=== PATIENT | female | born 1985 | race Caucasian/White ===

== ENCOUNTER 2019-07-11 17:13 | Emergency (ER) | payer OTHER ==
[~2019-07-11] VITALS: Ht 170.2 cm; Wt 70.0 kg
[2019-07-11 17:20] VITALS: BP 127/85
== END 2019-07-11 20:02 | disposition home or self-care (01) ==
LOC: ER 17:14
DX: B34.9 Viral infection, unspecified (principal); R21 Rash and other nonspecific skin eruption; F10.99 Alcohol use, unspecified with unspecified alcohol-induced disorder; F17.200 Nicotine dependence, unspecified, uncomplicated; Y90.9 Presence of alcohol in blood, level not specified
CPT/HCPCS: 99281

== ENCOUNTER 2019-07-12 10:31 | Emergency (ER) | payer MEDICAID ==
[~2019-07-12] VITALS: Ht 170.2 cm; Wt 75.7 kg
[2019-07-12 10:32] VITALS: BP 117/84
== END 2019-07-12 12:51 | disposition home or self-care (01) ==
LOC: ER 10:31
DX: B09 Unspecified viral infection characterized by skin and mucous membrane lesions (principal); F10.99 Alcohol use, unspecified with unspecified alcohol-induced disorder; Y90.9 Presence of alcohol in blood, level not specified
CPT/HCPCS: 99281

== ENCOUNTER 2020-05-02 20:03 | Emergency (ER) | payer OTHER ==
[~2020-05-02] VITALS: Ht 170.2 cm; Wt 76.2 kg
[2020-05-02] MEDS ORDERED: TETanus/Pertussis (Acell)/Diphther VAC/PF (Tdap-Adult) 0.5ml syringe IMVAC ONE (20:15)
--- NOTE | 2020-05-02 20:23 | NUR ---
pt admits she did meth tonight. "its not normally my thing but I did use it tonight."
[2020-05-02 20:47] LABS: CLARITY,URINE CLEAR (Clear); COLOR,URINE STRAW (Yellow); GLUCOSE, URINE NEGATIVE (Neg); KETONES,URINE NEGATIVE (Neg); LEUKOCYTE ESTERASE ,URINE NEGATIVE (Neg); NITRITES, URINE NEGATIVE (Neg); OCCULT BLOOD,URINE NEGATIVE (Neg); PH,URINE 6.5 (4.8-8.0); PROTEIN,URINE NEGATIVE (Neg); URINE HCG NEGATIVE (NEG); UROBILINOGEN,URINE 0.2 E.U/dL (0.2-1.0)
[2020-05-02 20:47] LABS: BASOPHILS # (AUTO) 0.1 X10'3 (0-0.2); BASOPHILS % (AUTO) 0.5 % (0-1); EOSINOPHILS # (AUTO) 0.1 X10'3 (0-0.9); EOSINOPHILS % (AUTO) 0.4 % (0-6); HEMATOCRIT 45.1 % (35.0-45.0); HEMOGLOBIN 15.1 g/dl (12.0-16.0); LYMPHOCYTES % (AUTO) 21.2 % (21-51); MEAN CORPUSCULAR HEMOGLOBIN 30.8 PG (27.0-31.0); MEAN CORPUSCULAR HGB CONC 33.5 g/dL (33.0-36.5); MEAN CORPUSCULAR VOLUME 91.8 FL (78-98); MEAN PLATELET VOLUME 9.1 FL (7.4-10.4); MONOCYTES # (AUTO) 0.8 X10'3 (0-0.9); MONOCYTES % (AUTO) 5.5 % (2-12); NEUTROPHILS # (AUTO) 10.2 X10'3 (1.8-7.7); NEUTROPHILS % (AUTO) 72.4 % (42-75); PLATELET COUNT 239 X10'3 (140-440); RED BLOOD COUNT 4.91 X10'6 (4.20-5.60); RED CELL DISTRIBUTION WIDTH 12.7 % (11.5-14.5); WHITE BLOOD COUNT 14.1 X10'3 (4.5-11.0)
[2020-05-02 20:48] LABS: UA COLLECTION TYPE CLN CATCH MIDSTREAM
[2020-05-02 20:55] LABS: URINE AMPHETAMINE SCREEN NEGATIVE (Neg); URINE BARBITUATE SCREEN NEGATIVE (Neg); URINE BENZODIAZEPINES SCREEN NEGATIVE (Neg); URINE CANNABINOID SCREEN NEGATIVE (Neg); URINE COCAINE SCREEN NEGATIVE (Neg); URINE METHADONE SCREEN NEGATIVE (Neg); URINE OPIATE SCREEN NEGATIVE (Neg); URINE PHENCYCLIDINE SCREEN NEGATIVE (Neg)
[2020-05-02] MEDS ORDERED: LORazepam 1 MG tablet PO ONE (21:00)
[2020-05-02 21:01] LABS: ALANINE AMINOTRANSFERASE 29 U/L (12-78); ALBUMIN 3.8 G/DL (3.4-5.0); ALBUMIN/GLOBULIN RATIO 1.1 (1.1-1.5); ALKALINE PHOSPHATASE 43 IU/L (46-116); ANION GAP 11 (8-16); ASPARTATE AMINO TRANSFERASE 17 U/L (10-37); BILIRUBIN,TOTAL 0.2 MG/DL (0.1-1.0); BLOOD UREA NITROGEN 9 MG/DL (7-18); BUN/CREATININE RATIO 15.5 (6.6-38.0); CALCIUM 8.4 MG/DL (8.5-10.1); CHLORIDE 106 MMOL/L (99-107); CREATININE 0.58 MG/DL (0.40-0.90); GLUCOSE 110 MG/DL (70-104); POTASSIUM 3.6 MMOL/L (3.5-5.1); SODIUM 142 MMOL/L (135-145); TOTAL CARBON DIOXIDE 25.4 MMOL/L (24-32); TOTAL PROTEIN 7.3 G/DL (6.4-8.2); eGFR > 90 ML/MIN
[2020-05-02] MEDS ORDERED: LORazepam 2 mg/ml vial IM ONE ×2 (21:10→21:15)
[2020-05-02] MEDS ORDERED: haloperidol lactate 5mg/ml inj IM ONE ×2 (21:10→21:15)
[2020-05-02] MEDS ORDERED: diphenhydrAMINE 50 mg/ml inj IM ONE ×2 (21:10→21:15)
[2020-05-02 21:11] LABS: ETHANOL 0.286 GM/DL (0.0-0.010)
--- NOTE | 2020-05-02 22:30 | NUR ---
Pt appears to be sleeping peacefully. No s/s of distress noted. Restraints released
--- NOTE | 2020-05-02 23:15 | NUR ---
Pt still lying on gurney resting comfortably. No s/s of distress noted
--- NOTE | 2020-05-03 | NUR ---
Pt continues to appear to be resting comfortably on the gurney. No apparent s/s of distress
--- NOTE | 2020-05-03 01:00 | NUR ---
Patient has repositioned herself on the gurney. Appears to be resting comfortably. No apparent s/s of distress noted
--- NOTE | 2020-05-03 02:00 | NUR ---
Pt appears to be resting comfortably. No s/s of distress noted
--- NOTE | 2020-05-03 02:39 | NUR ---
packet sent to [facility]
--- NOTE | 2020-05-03 03:30 | NUR ---
Pt appears to be resting comfortably. No apparent s/s of distress
--- NOTE | 2020-05-03 04:30 | NUR ---
Pt appears to be resting comfortably. No apparent s/s of distress
--- NOTE | 2020-05-03 06:29 | NUR ---
RECEIVED RRPORT FROM ANGÉLICA ROE. PT RESTING WITH EYES CLOSED ON LEFT SIDE RR EQUAL AND UNLABORED.
--- NOTE | 2020-05-03 08:01 | NUR ---
UP TO BR. STEADY GAIT NO NEEDS AT THIS TIME
--- NOTE | 2020-05-03 09:29 | NUR ---
PT RESTING ON RIGHT SIDE RR EQUAL AND ULABORED
--- NOTE | 2020-05-03 09:40 | NUR ---
SITTING UP IN BED EATING BREAKFAST
--- NOTE | 2020-05-03 11:38 | NUR ---
NILSA FROM [facility] AT TO EVALUATE PT
--- NOTE | 2020-05-03 11:59 | NUR ---
JEIMY WHATLEY [phone]
--- NOTE | 2020-05-03 12:00 | NUR ---
PT TALKING TO ON THE PHONE
--- NOTE | 2020-05-03 12:17 | NUR ---
PT RESTING ON RIGHT SIDE RR EQUAL AND UNLABORED. EYES CLOSED
--- NOTE | 2020-05-03 14:20 | NUR ---
PT RESTING ON RIGHT SIDE RR EQUAL AND UNLABORED
--- NOTE | 2020-05-03 16:18 | NUR ---
PT RESTING WITH EYES CLOSED ON RIGHT SIDE RR EQUAL AND UNLABORED.
--- NOTE | 2020-05-03 19:06 | NUR ---
Pt currently lying on her side. No apparent s/s of distress noted
--- NOTE | 2020-05-03 20:05 | NUR ---
Pt remains sleeping in her bed. No apparent s/s of distress noted
--- NOTE | 2020-05-03 21:15 | NUR ---
Pt appears to be resting comfortably. No apparent s/s of distress
--- NOTE | 2020-05-03 22:10 | NUR ---
Pt appears to be resting comfortably. No apparent s/s of distress
--- NOTE | 2020-05-03 23:05 | NUR ---
Pt appears to be resting comfortably. No apparent s/s of distress
--- NOTE | 2020-05-04 | NUR ---
Received report and assumed pt care. Pt resting quietly, respirations normal, s/s of distress.
--- NOTE | 2020-05-04 01:00 | NUR ---
Pt resting quietly, respirations normal, s/s of distress.
--- NOTE | 2020-05-04 01:00 | NUR ---
Pt resting quietly, respirations normal, s/s of distress.
--- NOTE | 2020-05-04 02:40 | NUR ---
Pt resting quietly, respirations normal, s/s of distress.
--- NOTE | 2020-05-04 03:30 | NUR ---
Pt resting quietly, respirations normal, s/s of distress.
--- NOTE | 2020-05-04 04:29 | NUR ---
Pt resting quietly, respirations normal, s/s of distress.
[2020-05-04 05:28] VITALS: BP 111/59
[2020-05-04] MEDS ORDERED: nicotine 14mg patch - 24hr TD ONE (08:50)
[2020-05-04] MEDS ORDERED: ESCI10TA PO (13:39)
== END 2020-05-04 10:03 ==
LOC: ER 20:04
DX: S80.212A Abrasion, left knee, initial encounter (principal); S80.211A Abrasion, right knee, initial encounter; T14.91XA Suicide attempt, initial encounter; F10.129 Alcohol abuse with intoxication, unspecified; Z72.89 Other problems related to lifestyle; X58.XXXA Exposure to other specified factors, initial encounter; Y93.89 Activity, other specified; Y92.89 Other specified places as the place of occurrence of the external cause; Y99.8 Other external cause status; Y90.0 Blood alcohol level of less than 20 mg/100 ml
CPT/HCPCS: 36415; 80053; 80305; 80320; 81003; 81025; 84443; 85025; 96372; 99285; J1200; J1630; J2060

== ENCOUNTER 2020-05-04 08:50 | Inpatient (IN) | payer OTHER, MEDICAID ==
[~2020-05-04] VITALS: Ht 167.6 cm; Wt 75.6 kg
[2020-05-04] MEDS ORDERED: mag hydrox/Alum hydrox/simeth 30ml oral suspension PO PRN (10:20)
[2020-05-04] MEDS ORDERED: acetaminophen 325mg tablet PO PRN (10:20)
[2020-05-04] MEDS: LORazepam 1 MG tablet PO PRN (10:36)
[2020-05-04 10:37] VITALS: BP 116/75
[2020-05-04 12:11] LABS: CLARITY,URINE SLIGHTLY CLOUDY (Clear); COLOR,URINE STRAW (Yellow); GLUCOSE, URINE NEGATIVE (Neg); KETONES,URINE NEGATIVE (Neg); LEUKOCYTE ESTERASE ,URINE SMALL (Neg); NITRITES, URINE NEGATIVE (Neg); OCCULT BLOOD,URINE TRACE-INTACT (Neg); PH,URINE 7.5 (4.8-8.0); PROTEIN,URINE NEGATIVE (Neg); UROBILINOGEN,URINE 0.2 E.U/dL (0.2-1.0)
[2020-05-04 12:14] LABS: UA COLLECTION TYPE CLN CATCH MIDSTREAM
[2020-05-04 12:22] LABS: SQUAMOUS EPITHELIAL CELL,UR MODERATE /LPF (FEW)
[2020-05-04 12:24] LABS: BACTERIA,URINE 1+ /HPF (Neg); RBC,URINE 0-2 /HPF (0-2)
[2020-05-04] MEDS ORDERED: ESCI10TA PO (13:39)
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
[2020-05-04] MEDS ORDERED: ESCITALOPRAM OXALATE 5 MG TABLET PO ONE (15:55)
[2020-05-04] MEDS: hydrOXYzine 25 MG tablet PO PRN (16:09)
--- NOTE | 2020-05-04 17:53 | NUR ---
Reviewed UA results with CATERINA Toribio. No orders at this time.
[2020-05-04 20:00] VITALS: BP 114/78
[2020-05-04] MEDS: NICOTINE POLACRILEX 2 MG LOZENGE BC PRN (20:51)
[2020-05-04] MEDS: traZODone 50mg tablet PO SCH (20:52)
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
[2020-05-05 07:45] VITALS: BP 98/57
[2020-05-05] MEDS: nicotine 21mg patch - 24 hr TD SCH (07:48)
[2020-05-05 07:50] LABS: HEMOGLOBIN A1C 5.2 % (4.5-6.2)
[2020-05-05] MEDS: acetaminophen 325mg tablet PO PRN (07:50)
[2020-05-05 07:53] LABS: CHOL/HDL RATIO 3.6 (0.00-4.99); CHOLESTEROL 197 MG/DL (0-200); HDL CHOLESTEROL 55 MG/DL (35-60); LDL CHOLESTEROL 119 MG/DL (50-100); TRIGLYCERIDES 163 MG/DL (20-135)
[2020-05-05] MEDS ORDERED: ESCITALOPRAM OXALATE 5 MG TABLET PO SCH (08:00)
[2020-05-05] MEDS: LORazepam 1 MG tablet PO PRN ×2 (11:04→17:17)
[2020-05-05] MEDS: NICOTINE POLACRILEX 2 MG LOZENGE BC PRN ×4 (11:06→21:03)
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
[2020-05-05] MEDS ORDERED: ciprofloxacin 250mg tablet PO SCH (17:30)
[2020-05-05] MEDS: ciprofloxacin 250mg tablet PO SCH ×2 (18:01→21:13)
[2020-05-05 20:00] VITALS: BP 116/70
[2020-05-05] MEDS: hydrOXYzine 25 MG tablet PO PRN (21:13)
[2020-05-05] MEDS: traZODone 50mg tablet PO SCH (21:13)
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
[2020-05-06] MEDS: nicotine 21mg patch - 24 hr TD SCH (07:42)
[2020-05-06] MEDS: ESCITALOPRAM OXALATE 5 MG TABLET PO SCH (07:44)
[2020-05-06 08:00] VITALS: BP 94/52
[2020-05-06] MEDS: NICOTINE POLACRILEX 2 MG LOZENGE BC PRN ×5 (08:21→18:57)
[2020-05-06] MEDS: LORazepam 1 MG tablet PO PRN ×2 (09:08→15:16)
[2020-05-06] MEDS: ciprofloxacin 250mg tablet PO SCH ×2 (10:10→21:02)
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
[2020-05-06] MEDS: hydrOXYzine 25 MG tablet PO PRN (18:57)
[2020-05-06] MEDS: magnesium hydroxide 30ml (MOM) UD suspension PO PRN (19:18)
[2020-05-06 19:36] VITALS: BP 121/77
[2020-05-06] MEDS: traZODone 50mg tablet PO SCH (21:02)
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
[2020-05-07] MEDS: NICOTINE POLACRILEX 2 MG LOZENGE BC PRN ×5 (07:37→21:31)
[2020-05-07] MEDS: ESCITALOPRAM OXALATE 5 MG TABLET PO SCH (07:37)
[2020-05-07] MEDS: nicotine 21mg patch - 24 hr TD SCH (07:38)
[2020-05-07 08:00] VITALS: BP 99/55
[2020-05-07] MEDS: LORazepam 1 MG tablet PO PRN ×2 (08:28→18:53)
--- NOTE | 2020-05-07 10:00 | NUR ---
Group Therapy: Process Group This Clinicians goals for this process group were as follows: (1) Ask scaling questions about Patients current anxiety, depression, and irritability symptoms as a check-in. (2) Share psychoeducation about the importance of being able to identify regular activities, support people, and thoughts (Anchors) that contribute to mental health well-being and stability. (3) Share psychoeducation about how the gradual removal of said activities, people and behaviors may lead to the erosion of mental well-being and stability. (4) Encourage patients to identify support anchors that they need to maintain in their lives that will promote their mental and emotional well-being. (5) Engage Patients in discussion of the topics shared within the group milieu. Patient identified experiencing the following levels of anxiety, depression, and anger/irritability while present in the group milieu (0-low; 10-High). Anxiety: 02/13 Depression: 12/14 Anger/irritability: 09/15 Patient presented as properly oriented x4 during the process group. Patient was dressed in nondescript, personal clothing that were appropriate within the milieu. Patient initially wore a black tanktop and black form-fitting pants with a floral pattern. She left on one occasion, and returned wearing a [facility] scrub top, with the same black pants. Psychomotor activity was unremarkable. She did leave the milieu on a few different occasions, returning each time after being away for less than a few minutes. Patient's thought content was clear, and concrete. Patient's thought process was clear, coherent, and linear. This Clinician did not observe Patient responding to any internal stimuli during session. The rate, latency, and tone of Client's speech was within normal limits. Patient maintained regular eye contact with this Clinician. Patient presented in calm euthymic mood, with congruent affect during the process group. Patient presented as: open, cooperative, verbally engaged, and nonobtrusive within the group milieu. During the discussion about emotional grounding interventions that one could utilize to maintain optimal/baseline mental health, Patient reported her awareness that she needed to be mindful of her activities of daily living (ADLs) She then shared her awareness that when she began to neglect her "ADLs" then she noticed herself endorsing other symptoms typical of depressed mood. She mentioned that upon neglecting ADLs she would stop socializing, start to isolate, and then would either eat too much, or too little. Rui Luis MA, LMFT Addendum: 05/07/20 at 1136 by Rui RAINEY Amended: Links added.
[2020-05-07] MEDS: ciprofloxacin 250mg tablet PO SCH ×2 (10:33→21:10)
[2020-05-07] MEDS: magnesium hydroxide 30ml (MOM) UD suspension PO PRN (10:40)
[2020-05-07] MEDS: hydrOXYzine 25 MG tablet PO PRN (14:08)
[2020-05-07] MEDS: sennosides 8.6mg tablet PO SCH (16:08)
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
--- NOTE | 2020-05-07 16:16 | NUR ---
Group Art Therapy, Continued: Patient was able to fully participate today in her second art therapy group. Patients artwork focused on further ID and expressing her emotions. Patient refelected being able to let go of "inner turmoil" better able to ID, release and learn from her unpleasant emotions ie: fear She presented as comfortable in sharing her feelings/thoughts in the group milieu together with her journaling. Nicolasa Chairez MA [id number] Addendum: 05/07/20 at 1624 by Nicolasa RAINEY Amended: Links added.
[2020-05-07] MEDS ORDERED: magnesium citrate 296ml oral solution PO ONE (19:10)
[2020-05-07 19:15] VITALS: BP 117/71
[2020-05-07] MEDS: traZODone 50mg tablet PO SCH ×2 (21:10→21:40)
--- NOTE | 2020-05-07 21:33 | NUR ---
pt removed nicotine patch
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
[2020-05-08] MEDS: sennosides 8.6mg tablet PO SCH (07:51)
[2020-05-08] MEDS: ESCITALOPRAM OXALATE 5 MG TABLET PO SCH (07:51)
[2020-05-08] MEDS: nicotine 21mg patch - 24 hr TD SCH (07:55)
[2020-05-08 07:57] VITALS: BP 95/56
[2020-05-08] MEDS ORDERED: ESCITALOPRAM OXALATE 5 MG TABLET PO ONE (08:05)
[2020-05-08] MEDS: NICOTINE POLACRILEX 2 MG LOZENGE BC PRN ×4 (08:56→20:05)
[2020-05-08] MEDS: LORazepam 1 MG tablet PO PRN ×2 (08:56→20:05)
--- NOTE | 2020-05-08 10:00 | NUR ---
Group Therapy: Process Group This Clinicians goal for this process group were as follows: (1) Share psychoeducation about core beliefs and how these beliefs shapes how one views reality. (2) Compare and contrast how people with different core beliefs might interpret an identical situation differently. (3) Discuss how changing negative core beliefs to more balanced, helpful, and rational alternatives can lead to improved behaviors and mood. (4) Process Clients thoughts and reflections on this topic within the group milieu. Patient identified experiencing the following levels of anxiety, depression, and anger/irritability while present in the group milieu (0-low; 10-High). Anxiety: 02/13 Depression: 11/13 Anger/irritability: 09/15 Patient presented as properly oriented x4 during the process group. Patient was dressed in a green hospital scrub top and dark form-fitting pants with patterned design within the milieu. Psychomotor activity was unremarkable. Patient's thought content was clear, and concrete. Patient's thought process was clear, coherent, and linear. This Clinician did not observe Patient responding to any internal stimuli during session. The rate, latency, and tone of Client's speech was within normal limits. Patient maintained regular eye contact with this Clinician. Patient presented in calm euthymic mood, with congruent affect during the process group. Patient presented as open and cooperative, and was verbally engaged and nonobtrusive within the group milieu. Patient offered insightful comments during the discussion of core beliefs, particularly in verbalizing awareness of how having a negative core belief about oneself--for example, "I'm ugly"--would make it very likely that a person may filter out stimuli and experiences if they don't align with one's negative core belief about themselves. On another occasion, Patient asked this Clinician what she should do if it is her that is saying negative things about herself that reinforce her negative core beliefs about herself. This Clinician praised Patient for this question--validating her insight of her engaging in this behavior--and encouraged her to access safe and supportive people in her life (Partners, Therapists) to share her thoughts about herself to give them the opportunity to engage her in some healthy reality-testing, which may allow them to correct any cognitive distortions that she is applying toward herself. Rui Luis MA, WASTE EXAMINER Addendum: 05/08/20 at 1137 by Rui RAINEY Amended: Links added.
[2020-05-08] MEDS: ciprofloxacin 250mg tablet PO SCH ×2 (10:57→21:26)
[2020-05-08] MEDS: hydrOXYzine 25 MG tablet PO PRN (16:36)
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
--- NOTE | 2020-05-08 17:53 | NUR ---
1:1 Patient was referred by the treatment team and met with the below named therapist for the purpose of exploring underlying issues of distress/loss and grief. Patient was responsive and this therapist was able to introduce her to the aspect of brainspotting and bilateral sound. Patient was able to access her "Resource Spot" she named "The right place" that held feelings and memories that brought her a greater sense of happiness, carley and love. Patient agreed to journal her experience this evening to further express and document her session. Patient is open and willing to meet once again with this therapist 05/09/20 to further explore and focus on the specifics of her loss and grief ie: of both her mother(4 yrs. ago) and father (2 yrs. ago). Nicolasa Chairez MA [facility] #[id number] Art Therapist [facility] Addendum: 05/08/20 at 1801 by Nicolasa RAINEY Amended: Links added.
[2020-05-08 19:59] VITALS: BP 111/66
[2020-05-08] MEDS: traZODone 50mg tablet PO SCH (21:27)
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
[2020-05-09 08:00] VITALS: BP 104/58
[2020-05-09] MEDS: sennosides 8.6mg tablet PO SCH (08:13)
[2020-05-09] MEDS: ESCITALOPRAM OXALATE 5 MG TABLET PO SCH (08:14)
[2020-05-09] MEDS: nicotine 21mg patch - 24 hr TD SCH (08:14)
[2020-05-09] MEDS: LORazepam 1 MG tablet PO PRN ×2 (09:38→18:17)
[2020-05-09] MEDS: ciprofloxacin 250mg tablet PO SCH ×2 (09:38→21:05)
[2020-05-09] MEDS: NICOTINE POLACRILEX 2 MG LOZENGE BC PRN ×4 (09:38→21:21)
--- NOTE | 2020-05-09 10:00 | NUR ---
Group Therapy: Process Group This Clinicians goals for this process group were as follows: (1) Ask scaling questions about patients current anxiety, depression, and irritability symptoms as a check-in. (2) Share psychoeducation about emotional relaxation techniques with patients, including information on: mindfulness, meditation controlled breathing, progressive muscle relaxation, guided visualization. (3) Model and practice controlled breathing, progressive muscle relaxation, and guided visualization with patients within the group milieu. (4) Process patients comments and reflections on the before-mentioned activities after they have participated in them. Patient identified experiencing the following levels of anxiety, depression, and anger/irritability while present in the group milieu (0-low; 10-High). Anxiety: 4/10 Depression: 3/10 Anger/irritability: 0/10 Patient presented as properly oriented x4 during the process group. Patient was dressed in a green hospital scrub top, with black form-fitting pants, emblazoned with a pink pattern, that were appropriate within the milieu. Psychomotor activity was unremarkable. Patient's thought content was clear, and concrete. Patient's thought process was clear, coherent, and linear. This Clinician did not observe Patient responding to any internal stimuli during session. The rate, latency, and tone of Patient's speech was within normal limits. Patient maintained regular eye contact with this Clinician. Patient presented in calm euthymic mood, with congruent affect during the process group. Patient presented as open and cooperative, and was verbally engaged and nonobtrusive within the group milieu. Patient was kind and accommodating to other patients with the group milieu. She invited other group members to join her at her table, where she was coloring her mandala, as a activity that was incorporated into the discussion as an emotionally relaxing/grounding activity. Patient made comments that suggested that the information that this Clinician shared about the "Flight/Fight (Freeze) Response," and the arousal of the sympathetic nervous system was interesting to her. Patient made statements that she sometimes would make comments about herself, in which she would state, "I broke my brain." Patient seemed particularly interested in how controlled diaphragmatic breathing could be of assistance in supplying the brain with needed oxygen to calm down during unwanted episodes of emotional escalation. At the end of the session, Patient had questions about what she could do about her, "Sleep Paralysis." In that moment, this Clinician encouraged Patient to engaged in emotional relaxation techniques around bedtime in an attempt to see if that practice would minimize those symptoms, and encouraged her to process those, along with other relevant mental health symptoms, with a therapist, or psychiatrist upon her discharge from the medical milieu. Rui Luis MA, HEALTH ADMINISTRATION TEACHER Addendum: 05/09/20 at 1139 by Rui Luis SS Amended: Links added.
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
--- NOTE | 2020-05-09 14:15 | NUR ---
Initial: Pt admit w/ SI also DX UTI; hx heavy etoh and meth abuse per EMR. RD d/w RN regarding routine thiamin, folic, MVI supplementation givne etoh hx. PO 75-100% avg regular diet meeting needs. LBM 05/08 receiving senna. No nutrition concerns at this time. Will continue to monitor. Rec: 1. continue regular diet; consider heart healthy diet as medically indicated 2. bowel care per rx 3. thiamin, folic, MVI for etoh hx if MD agreeable 4. wt per rx Addendum: 05/09/20 at [address] Amended: Links added.
[2020-05-09] MEDS: hydrOXYzine 25 MG tablet PO PRN ×2 (14:41→21:21)
[2020-05-09 19:00] VITALS: BP 107/65
[2020-05-09] MEDS: traZODone 50mg tablet PO SCH (21:05)
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
[2020-05-10] MEDS: sennosides 8.6mg tablet PO SCH (07:37)
[2020-05-10] MEDS: nicotine 21mg patch - 24 hr TD SCH (07:37)
[2020-05-10] MEDS: ESCITALOPRAM OXALATE 5 MG TABLET PO SCH (07:38)
[2020-05-10 07:45] VITALS: BP 97/56
[2020-05-10] MEDS: hydrOXYzine 25 MG tablet PO PRN ×2 (07:49→14:50)
[2020-05-10] MEDS: NICOTINE POLACRILEX 2 MG LOZENGE BC PRN ×6 (07:50→21:56)
[2020-05-10] MEDS: folic acid/vitamin B complex w/vitamin C 0.8mg tablet PO SCH (08:55)
--- NOTE | 2020-05-10 10:00 | NUR ---
Group Therapy: Process Group This Clinicians goal for this process group were as follows: (1) Introduce and provide psychoeducation on Richard ABC method. (2) Practice working through Richard ABC method using examples provided by this Clinician. (3) Encourage Patients to process some of their own reoccurring situations utilizing Richard ABC methodology. (4) Process Clients thoughts and reflections on this topic within the group milieu. Patient identified experiencing the following levels of anxiety, depression, and anger/irritability while present in the group milieu (0-low; 10-High). Anxiety: 03/15 Depression: 11/13 Anger/irritability: 10/16 Patient presented as properly oriented x4 during the process group. Patient was dressed in nondescript, personal clothing that were appropriate within the milieu. She wore a black tank top and black elastic pants with pink patterning. Psychomotor activity was unremarkable. Patient asked this Clinician if it was ok for her to color on a picture that she had brought into the group milieu with her. This Clinician said yes to this request. She quietly colored during the process group discussion on Richard' ABC methodology. Patient's thought content was clear, and concrete. Patient's thought process was clear, coherent, and linear. This Clinician did not observe Patient responding to any internal stimuli during session. The rate, latency, and tone of Patients speech was within normal limits. Patient maintained regular eye contact with this Clinician. Patient presented in calm euthymic mood, with congruent affect during the process group. Patient presented as open and cooperative, and was verbally engaged and nonobtrusive within the group milieu. Patient made numerous insightful comments when discussing Richard' ABC methodology. She identified the situation of a, "Family member dying," as a hypothetical activating event, which the process group then applied the ABC methodology to. Patient was able to identify balanced, rational, and positive beliefs that one could endorse that may assist a person in reducing the acuity of depression and grief as an emotional consequence of having a family member . More specifically, she shared, "They are in a better place," and, "They are no longer suffering." Patient endorsed experiencing high anxiety symptoms, 03/15, and noted that her anxiety was at that level because she was accepted to go to rehab after her discharge from the medical milieu. Rui Luis MA, IOS DEVELOPER Addendum: 05/10/20 at 1149 by Rui RAINEY Amended: Links added.
[2020-05-10] MEDS: ciprofloxacin 250mg tablet PO SCH (10:17)
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
[2020-05-10] MEDS ORDERED: TRAZ-251 PO (15:02)
[2020-05-10] MEDS ORDERED: NICO-668 BC (15:02)
[2020-05-10] MEDS ORDERED: NICO-687 TD (15:02)
[2020-05-10] MEDS ORDERED: ESCI5TAB PO (15:02)
[2020-05-10] MEDS ORDERED: CIPR250T4 PO (15:02)
[2020-05-10] MEDS ORDERED: HYDR-3686 PO (15:02)
[2020-05-10] MEDS: acetaminophen 325mg tablet PO PRN ×2 (16:47→21:53)
[2020-05-10] MEDS: LORazepam 1 MG tablet PO PRN (19:14)
[2020-05-10 19:21] VITALS: BP 99/78
[2020-05-10] MEDS: traZODone 50mg tablet PO SCH (21:56)
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
[2020-05-11 07:07] VITALS: BP 102/65
[2020-05-11] MEDS: hydrOXYzine 25 MG tablet PO PRN ×2 (08:01→17:56)
[2020-05-11] MEDS: sennosides 8.6mg tablet PO SCH (08:01)
[2020-05-11] MEDS: NICOTINE POLACRILEX 2 MG LOZENGE BC PRN ×5 (08:01→19:27)
[2020-05-11] MEDS: folic acid/vitamin B complex w/vitamin C 0.8mg tablet PO SCH (08:01)
[2020-05-11] MEDS: nicotine 21mg patch - 24 hr TD SCH (08:02)
[2020-05-11] MEDS: ESCITALOPRAM OXALATE 5 MG TABLET PO SCH (08:02)
[2020-05-11] MEDS: LORazepam 1 MG tablet PO PRN ×2 (12:29→19:27)
[2020-05-11] MEDS: acetaminophen 325mg tablet PO PRN (13:26)
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
[2020-05-11 20:00] VITALS: BP 106/69
[2020-05-11] MEDS: traZODone 50mg tablet PO SCH (21:07)
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
[2020-05-12] MEDS: hydrOXYzine 25 MG tablet PO PRN ×2 (06:13→20:11)
[2020-05-12] MEDS: NICOTINE POLACRILEX 2 MG LOZENGE BC PRN ×4 (06:13→20:11)
[2020-05-12 08:00] VITALS: BP 95/51
[2020-05-12] MEDS: sennosides 8.6mg tablet PO SCH (08:11)
[2020-05-12] MEDS: folic acid/vitamin B complex w/vitamin C 0.8mg tablet PO SCH (08:11)
[2020-05-12] MEDS: ESCITALOPRAM OXALATE 5 MG TABLET PO SCH (08:12)
[2020-05-12] MEDS: nicotine 21mg patch - 24 hr TD SCH (08:13)
[2020-05-12] MEDS: LORazepam 1 MG tablet PO PRN (16:43)
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
[2020-05-12 19:42] VITALS: BP 112/72
[2020-05-12] MEDS: traZODone 50mg tablet PO SCH ×2 (20:11→21:51)
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
[2020-05-13] MEDS: ESCITALOPRAM OXALATE 5 MG TABLET PO SCH (07:53)
[2020-05-13] MEDS: sennosides 8.6mg tablet PO SCH (07:53)
[2020-05-13] MEDS: folic acid/vitamin B complex w/vitamin C 0.8mg tablet PO SCH (07:53)
[2020-05-13] MEDS: hydrOXYzine 25 MG tablet PO PRN (07:54)
[2020-05-13] MEDS: nicotine 21mg patch - 24 hr TD SCH (07:54)
[2020-05-13 08:05] VITALS: BP 114/55
[2020-05-13] MEDS: LORazepam 1 MG tablet PO PRN (09:21)
--- NOTE | 2020-05-13 10:30 | NUR ---
Discharge Note: Pt. discharged from [facility] at approximately 1030, able to ambulate out of the facility accompanied by tech. Belongings previously inventoried and returned to pt. by tech, and discharge paperwork and medications reviewed with pt. by this typewriter ribbon winder she reported understanding. Hard copies of prescriptions sent with pt. r/t Juice Scaleman being unable to pickup medications before pt. discharge. Also, per CATERINA Mondragon, ABT dose of Ciprofloxacin for previous UTI has been completed, and she no longer needs to take this medication (pt. provided education and reports understanding). Nicotine replacements ordered. Pt. is able to contract for safety, and reports only some anxiety r/t being away from her family and going to a new facility. PRN Atrax and Ativan administered with effectiveness. Pt. will be going to a rehabilitation program in [place], and a jitney driver will be transporting her. Pt. accompanied to vehicle by staff for safety.
== END 2020-05-13 10:33 | disposition short-term general hospital (02) | DRG 885 ==
LOC: ADULT MH 10:06
PROVIDERS: ADMIT Psychiatry & Neurology Psychiatry; ATTEND Psychiatry & Neurology Psychiatry
DX: F33.2 Major depressive disorder, recurrent severe without psychotic features (principal); N39.0 Urinary tract infection, site not specified; F10.20 Alcohol dependence, uncomplicated; F43.10 Post-traumatic stress disorder, unspecified; T14.91XA Suicide attempt, initial encounter; F15.10 Other stimulant abuse, uncomplicated; F17.200 Nicotine dependence, unspecified, uncomplicated; F41.1 Generalized anxiety disorder; M47.812 Spondylosis without myelopathy or radiculopathy, cervical region; M50.30 Other cervical disc degeneration, unspecified cervical region; Z81.3 Family history of other psychoactive substance abuse and dependence; Z71.6 Tobacco abuse counseling; X83.8XXA Intentional self-harm by other specified means, initial encounter; Y93.89 Activity, other specified; Y92.89 Other specified places as the place of occurrence of the external cause; Y99.8 Other external cause status
CPT/HCPCS: 36415; 80061; 81001; 83036; 87077; 87081; 87088; 87186; Q0177

== ENCOUNTER 2020-09-17 15:49 | Emergency (ER) | payer MEDICAID, OTHER ==
[~2020-09-17] VITALS: Ht 170.2 cm; Wt 79.5 kg
[~2020-09-17 15:49] MED LIST: CIPR250T4 PO; ESCI5TAB PO; HYDR-3686 PO; NICO-668 BC; NICO-687 TD; TRAZ-251 PO
[2020-09-17 17:16] LABS: BASOPHILS # (AUTO) 0.1 X10'3 (0-0.2); BASOPHILS % (AUTO) 0.5 % (0-1); EOSINOPHILS # (AUTO) 0.2 X10'3 (0-0.9); EOSINOPHILS % (AUTO) 1.5 % (0-6); HEMATOCRIT 44.5 % (35.0-45.0); HEMOGLOBIN 14.9 g/dl (12.0-16.0); LYMPHOCYTES # (AUTO) 2.1 X10'3 (1.1-4.8); LYMPHOCYTES % (AUTO) 18.2 % (21-51); MEAN CORPUSCULAR HEMOGLOBIN 30.4 PG (27.0-31.0); MEAN CORPUSCULAR HGB CONC 33.5 g/dL (33.0-36.5); MEAN CORPUSCULAR VOLUME 90.9 FL (78-98); MEAN PLATELET VOLUME 9.7 FL (7.4-10.4); MONOCYTES # (AUTO) 0.8 X10'3 (0-0.9); MONOCYTES % (AUTO) 7.2 % (2-12); NEUTROPHILS # (AUTO) 8.4 X10'3 (1.8-7.7); NEUTROPHILS % (AUTO) 72.6 % (42-75); PLATELET COUNT 212 X10'3 (140-440); RED CELL DISTRIBUTION WIDTH 12.9 % (11.5-14.5); WHITE BLOOD COUNT 11.5 X10'3 (4.5-11.0)
[2020-09-17 17:30] LABS: ALANINE AMINOTRANSFERASE 44 U/L (12-78); ALBUMIN/GLOBULIN RATIO 1.3 (1.1-1.5); ALKALINE PHOSPHATASE 41 IU/L (46-116); ANION GAP 8 (8-16); ASPARTATE AMINO TRANSFERASE 15 U/L (10-37); BILIRUBIN,TOTAL 0.2 MG/DL (0.1-1.0); BLOOD UREA NITROGEN 12 MG/DL (7-18); BUN/CREATININE RATIO 16.7 (6.6-38.0); CALCIUM 8.6 MG/DL (8.5-10.1); CHLORIDE 104 MMOL/L (99-107); CREATININE 0.72 MG/DL (0.40-0.90); GLUCOSE 92 MG/DL (70-104); SODIUM 141 MMOL/L (135-145); TOTAL CARBON DIOXIDE 28.6 MMOL/L (24-32); TOTAL PROTEIN 7.1 G/DL (6.4-8.2); eGFR > 90 ML/MIN
[2020-09-17 17:40] LABS: MAGNESIUM 2.4 MG/DL (1.5-2.4)
[2020-09-17 17:58] VITALS: BP 111/67
== END 2020-09-17 18:02 | disposition home or self-care (01) ==
LOC: ER 15:50
DX: R00.2 Palpitations (principal); Z72.89 Other problems related to lifestyle; Z88.8 Allergy status to other drugs, medicaments and biological substances; Z79.2 Long term (current) use of antibiotics; Z79.899 Other long term (current) drug therapy
CPT/HCPCS: 36415; 71045; 80053; 83735; 83880; 84443; 84484; 85025; 93005; 99285